=== PATIENT | male | born 1950 | race Two or more races ===

== ENCOUNTER 2017-07-10 08:40 | Outpatient (CLI) | payer OTHER | END 2017-07-10 15:00 | disposition home or self-care (01) | LOC: SONOGRAMA 08:40 | DX: Z13.6 Encounter for screening for cardiovascular disorders (principal) ==

== ENCOUNTER 2017-07-10 08:48 | Outpatient (CLI) | payer OTHER | END 2017-07-10 15:00 | disposition home or self-care (01) | LOC: TOM 08:48 | DX: C61 Malignant neoplasm of prostate (principal) | CPT/HCPCS: 74178; Q9965 ==

== ENCOUNTER 2017-07-11 08:38 | Outpatient (CLI) | payer OTHER | END 2017-07-11 09:00 | disposition home or self-care (01) | LOC: NUCLEAR 08:38 | DX: C61 Malignant neoplasm of prostate (principal) | CPT/HCPCS: 78306; 78320; A9503 ==